=== PATIENT | male | born 1995 | race African-American/Black ===

== ENCOUNTER 2018-04-06 03:51 | Emergency (ER) | payer BC ==
[~2018-04-06] VITALS: Ht 188 cm; Wt 81.6 kg
--- NOTE | 2018-04-06 04:14 | NUR ---
ED Nurse Note: pt came in due to headache x 1 and 1/2 weeks ago. pt stated that he has dentist schedule but he needs to go to the ed because of the headache.
[2018-04-06 04:17] VITALS: BP 134/84
[2018-04-06] MEDS ORDERED: KEPPRA500 M4 ORAL (04:23)
[2018-04-06] MEDS ORDERED: HYDROCODON-ACE1 EA15 ORAL (04:39)
[2018-04-06] MEDS ORDERED: IBUPROFEN600 MG ORAL (04:39)
[2018-04-06] MEDS ORDERED: AMOXICILLIN500 MG ORAL (04:39)
--- NOTE | 2018-04-06 04:39 | Emergency Room Report ---
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 He presents with chief complaint of dental pain. Onset for last couple days. Pain is like to his left lower wisdom teeth. No fever chills. Worse with eating. Pain is 8 out of 10. Rating up his head. Denies any other complaint. He said he has an appointment with the dentist next . Allergies: Coded Allergies: No Known Allergies (Unverified , 04/06/18) Patient History Past Medical History: see triage record, old chart reviewed Past Surgical History: other Pertinent Family History: none Social History: Denies: smoking Immunizations: other Reviewed Nursing Documentation: PMH: Agreed; PSxH: Agreed Nursing Documentation-PM Past Medical History: No Stated History Hx Asthma: Yes Hx Neurological Problems: Yes - cerebral vasoconstriction Review of Systems Eye: Denies: eye pain, blurred vision ENT: Denies: ear pain, nose congestion, throat swelling Respiratory: Denies: cough, shortness of breath Cardiovascular: Denies: chest pain, palpitations Gastrointestinal: Denies: abdominal pain, diarrhea, nausea, vomiting Musculoskeletal: Denies: back pain, joint pain Skin: Denies: rash Neurological: Denies: headache, numbness Endocrine: Denies: increased thirst, increased urine Hematologic/Lymphatic: Denies: easy bruising All Other Systems: negative except mentioned in HPI Physical Exam Vital Signs Date Time Temp Pulse Resp B/P (MAP) Pulse Ox O2 Delivery O2 Flow Rate FiO2 04/06/18 04:14 97.0 81 16 134/84 98 Room Air vitals normal Sp02 EP Interpretation: reviewed, normal General Appearance: well appearing, no apparent distress, alert Head: normocephalic, atraumatic Eyes: bilateral eye PERRL, bilateral eye EOMI ENT: hearing grossly normal, normal pharynx, other - No trismus. His left with wisdom teeth is half way in. Neck: full range of motion, supple, no meningismus Respiratory: chest non-tender, lungs clear, normal breath sounds Cardiovascular #1: regular rate, rhythm, no murmur Gastrointestinal: normal bowel sounds, non tender, no mass, no organomegaly, no bruit, non-distended Musculoskeletal: back normal, gait/station normal, normal range of motion Psychiatric: mood/affect normal Skin: warm/dry Medical Decision Making Diagnostic Impression: Primary Impression: Toothache ER Course Patient with dental pain. No obvious abscess that can twice a day. We'll discharge home. Last Vital Signs Date Time Temp Pulse Resp B/P (MAP) Pulse Ox O2 Delivery O2 Flow Rate FiO2 04/06/18 04:17 98.0 81 16 134/84 98 Room Air Status: improved Disposition: HOME, SELF-CARE Condition: Stable Scripts Ibuprofen* (MOTRIN*) 600 Mg Tablet 600 MG ORAL THREE TIMES A DAY, #30 TAB 0 Refills Prov: Dom Solomon MD 04/06/18 Hydrocodone/Acetaminophen 5-325* (HYDROCODONE/ACETAMINOPHEN 5-325*) 1 Each Tablet 1 TAB ORAL Q6H PRN for For Pain, #10 TAB 0 Refills Prov: Dom Solomon MD 04/06/18 Amoxicillin* (AMOXIL*) 500 Mg Capsule 500 MG ORAL THREE TIMES A DAY, #21 CAP Prov: Dom Solomon MD 04/06/18 Patient Instructions: Dental Pain Additional Instructions: Follow-up with dentist [facility]. Return if symptom worsen. Dom Solomon MD Apr 06, 2018 04:39
[2018-04-06] MEDS ORDERED: Norco 5mg/325mg tab ORAL ONE (04:45)
[2018-04-06 04:46] VITALS: BP 134/84
--- NOTE | 2018-04-06 04:48 | NUR ---
ED Nurse Note: pt was seen and examined by raquel. po med ordered and was carried out. pt was cleared for discharge. yina signs stable. id band removed. pt walked with stable gait with all belongings
== END 2018-04-06 04:46 | disposition home or self-care (01) ==
LOC: EMR 04:29
DX: K08.89 Other specified disorders of teeth and supporting structures (principal)
CPT/HCPCS: 99282